=== PATIENT | female | born 1995 ===

== ENCOUNTER 2022-10-21 23:59 | Emergency (ER) | payer MEDICAID ==
[~2022-10-21] VITALS: Ht 149.9 cm; Wt 71.6 kg
[2022-10-22 00:30] VITALS: BP 107/69
== END 2022-10-22 02:33 | disposition left against medical advice (07) ==
LOC: ER 23:59
DX: N93.8 Other specified abnormal uterine and vaginal bleeding (principal)
CPT/HCPCS: 99281